=== PATIENT | female | born 1965 | race Two or more races ===

== ENCOUNTER 2019-06-16 11:00 | Outpatient (CLI) | payer BC | END 2019-06-16 23:59 | disposition home or self-care (01) | LOC: WOU 11:00 | PROVIDERS: ATTEND Podiatrist Foot & Ankle Surgery | DX: M20.11 Hallux valgus (acquired), right foot (principal); M20.12 Hallux valgus (acquired), left foot; M77.41 Metatarsalgia, right foot; M77.42 Metatarsalgia, left foot; M20.41 Other hammer toe(s) (acquired), right foot | CPT/HCPCS: G0463 ==

== ENCOUNTER 2019-06-23 11:55 | Outpatient (CLI) | payer BC | END 2019-06-23 23:59 | disposition home or self-care (01) | LOC: WOU 11:55 | PROVIDERS: ATTEND Podiatrist Foot & Ankle Surgery | DX: M21.621 Bunionette of right foot (principal); M20.12 Hallux valgus (acquired), left foot; M20.11 Hallux valgus (acquired), right foot; S93.144A Subluxation of metatarsophalangeal joint of right lesser toe(s), initial encounter; X58.XXXA Exposure to other specified factors, initial encounter; Y92.89 Other specified places as the place of occurrence of the external cause; M77.41 Metatarsalgia, right foot; M77.42 Metatarsalgia, left foot; M20.41 Other hammer toe(s) (acquired), right foot | CPT/HCPCS: G0463 ==